=== PATIENT | female | born 1950 | race Caucasian/White ===

== ENCOUNTER → 2023-09-01 | Day surgery (SDC) | payer MEDICARE ==
[2023-08-28 11:28] LABS: ALBUMIN 3.4 G/DL (3.4-5.0); ALKALINE PHOSPHATASE 63 IU/L (46-116); BLOOD UREA NITROGEN 12 MG/DL (7-18); BUN/CREATININE RATIO 14.5 (10.0-20.0); CALCIUM 8.5 MG/DL (8.5-10.1); CHLORIDE 106 MMOL/L (99-107); CREATININE 0.83 MG/DL (0.40-0.90); PRE OP ALT 19 U/L (30-65); PRE OP ANION GAP 7 (8-16); PRE OP AST 11 U/L (10-37); PRE OP BILIRUB, TOTAL 0.3 MG/DL (0.0-1.0); PRE OP GLUCOSE 100 MG/DL (70-104); PRE OP POTASSIUM 4.2 MMOL/L (3.4-5.1); PRE OP SODIUM 141 MMOL/L (135-145); TOTAL CARBON DIOXIDE 28.2 MMOL/L (24-32); TOTAL PROTEIN 6.9 G/DL (6.4-8.2); eGFR 68 ML/MIN
[2023-08-28 11:35] LABS: BASOPHILS # (AUTO) 0.1 X10'3 (0-0.2); BASOPHILS % (AUTO) 0.4 % (0-1); EOSINOPHILS # (AUTO) 0.2 X10'3 (0-0.9); EOSINOPHILS % (AUTO) 1.9 % (0-6); LYMPHOCYTES % (AUTO) 23.4 % (21-51); MEAN CORPUSCULAR HEMOGLOBIN 28.8 PG (27.0-31.0); MEAN CORPUSCULAR HGB CONC 33.3 g/dL (33.0-36.5); MEAN CORPUSCULAR VOLUME 86.3 FL (78-98); MEAN PLATELET VOLUME 8.7 FL (7.4-10.4); MONOCYTES % (AUTO) 7.7 % (2-12); NEUTROPHILS # (AUTO) 8.4 X10'3 (1.8-7.7); NEUTROPHILS % (AUTO) 66.6 % (42-75); PRE OP HEMATOCRIT 46.9 % (35.0-45.0); PRE OP HEMOGLOBIN 15.6 g/dL (12.0-16.0); PRE OP PLATELET COUNT 241 X10'3 (140-440); PRE OP WHITE BLOOD COUNT 12.7 10'3 (4.8-10.8); RED BLOOD COUNT 5.43 X10'6 (4.20-5.60)
[~2023-09-01] VITALS: Ht 160 cm; Wt 87.1 kg
[~2023-09-01] MED LIST: ADAL40SY SUBCUT; ALB0.5UD NEB; ALBU8HFA INH; ALEN70TA80 PO; ASPI81TA52 PO; BENZ-111 PO; ESTR1TAB28 PO; LIDOcaine 2% (20mg/ml) 5ml vial ONE; MONT-40 PO; MULT-1085 PO; ROSU20TA73 PO; SERT-434 PO; dexamethasone sod phosphate 4mg/ml inj. ONE; fentaNYL/PF 50MCG/1 ML 2ML syringe ONE; midazolam 1 mg/ML 2ml injection ONE; propofol inj 20 ML IV ONE
[2023-09-01 05:30] VITALS: BP 140/73; PULSE 74; RESP 16; TEMP 98.4; O2SAT 93
[2023-09-01] MEDS: ringers solution, lacted 1,000 ML IV SCH (06:06)
[2023-09-01] MEDS: famotidine 20mg tablet PO ONE (06:08)
[2023-09-01] MEDS: albuterol 2.5 MG/3 ML nebule NEB ONE (06:51)
[2023-09-01 06:54] VITALS: PULSE 69; RESP 16; O2SAT 96
[2023-09-01 06:57] VITALS: PULSE 72; RESP 16
== END | disposition home or self-care (01) ==
LOC: PAS 05:29
PROVIDERS: ATTEND Internal Medicine Critical Care Medicine
DX: R91.8 Other nonspecific abnormal finding of lung field (principal); Z53.8 Procedure and treatment not carried out for other reasons; J98.11 Atelectasis; I25.10 Atherosclerotic heart disease of native coronary artery without angina pectoris
CPT/HCPCS: 36415; 71250; 80053; 82948; 85025; 94640; J7120; Z7506; J1100; J2250; J2704; J3010; J3490